=== PATIENT | male | born 1995 | race Caucasian/White ===

== ENCOUNTER 2020-10-01 15:00 | Emergency (ER) | payer BC, SELFPAY ==
[2020-10-01 15:17] VITALS: BP 119/74; PULSE 81; RESP 16; TEMP 37.2; O2SAT 100
[2020-10-01 16:00] VITALS: PULSE 85; RESP 18; O2SAT 99
--- NOTE | 2020-10-01 16:01 | ED.URI ---
HPI - URI/Sore Throat General Chief Complaint: Upper Respiratory Infection Stated Complaint: Headache,Cough,Runny Nose Time Seen by Provider: 10/01/20 15:37 Source: patient and RN notes reviewed Mode of arrival: ambulatory Limitations: no limitations History of Present Illness HPI Narrative: Patient presents today complaining of a 2-day history of headache, sore throat, cough and wheezing with intermittent shortness of breath, rhinorrhea, congestion. Sore throat increases with swallowing and he currently rates it 3/10. Patient has been taking Advil, Zyrtec, and DayQuil without relief. Patient has history of asthma. He has not had an inhaler for about a year. MD elicited complaint: cough, sore throat and nasal congestion Related Data Allergies Allergy/AdvReac Type Severity Reaction Status Date / Time No Known Allergies Allergy Verified 10/01/20 15:27 Review of Systems Review of Systems: Narrative: CONSTITUTIONAL: Denies body aches, fever, chills, or sweats. EYES: Denies visual changes, redness, or discharge. ENT: Denies otalgia.+ Rhinorrhea, congestion, sore throat CARDIOVASCULAR: Denies chest pain, palpitations, or edema. RESPIRATORY: + Cough, wheezing, intermittent shortness of breath GASTROINTESTINAL: Denies abdominal pain, nausea, vomiting, or diarrhea. GENITOURINARY: Denies dysuria or hematuria. SKIN: Denies rash, itching, or wounds. MUSCULOSKELETAL: Denies back pain, joint pain, or myalgia. NEUROLOGIC: Denies numbness, tingling, or weakness.+ Headache PSYCH: Denies depression or anxiety. [facility] Past Medical History Medical History (Updated 10/01/20 @ 16:27 by Mary Bravo, [facility], ) Asthma Seasonal allergies Social History Social History Gender identity (if verbalized by the patient): Male Comments At time of signature, I have reviewed and agree with nursing past medical, surgical, social and family history unless otherwise noted. Please see nursing chart for further information. There is no relevant family history pertinent to the presenting complaint Exam Narrative: Exam Narrative: GENERAL: Well-appearing, well-nourished, and in no acute distress. HEAD: Normocephalic, atraumatic. EYES: EOMI. No redness or drainage. Conjunctivae normal. ENT: Mucous membranes pink and moist. Nares mildly congested. No rhinorrhea. TMs normal bilaterally. Throat normal. Uvula midline. NECK: Normal AROM. Supple. No lymphadenopathy. CHEST: No respiratory distress. Inspiratory and expiratory wheezes throughout. HEART: Regular rate and rhythm. No murmur appreciated. Normal peripheral pulses. EXTREMITIES: Normal range of motion. No edema. SKIN: Warm, dry, no rash. Capillary refill normal. Normal skin turgor. NEURO: No focal deficits. Alert and oriented x3. Gait steady. PSYCH: Normal affect. No signs of depression or anxiety. Course Course Emergency Course: After Duoneb, patient's inspiratory wheezing has resolved. States he feels better. Vital Signs Vital signs: Vital Signs Temperature 99.0 F 10/01/20 15:17 Pulse Rate 81 10/01/20 15:17 Respiratory Rate 16 10/01/20 15:17 Blood Pressure 119/74 10/01/20 15:17 Pulse Oximetry 100 10/01/20 15:17 Temperature 99.0 F 10/01/20 15:17 Pulse Rate 92 10/01/20 16:30 Respiratory Rate 17 10/01/20 16:30 Blood Pressure 119/74 10/01/20 15:17 Pulse Oximetry 99 10/01/20 16:30 Reviewed MDM - URI/Sore Throat Differential Diagnosis Differential diagnosis: Likely upper respiratory infection, sinusitis, viral infection, bronchitis, pharyngitis and other (Strep throat, COVID-19, seasonal allergies, rhinitis) Lab Data Attestation: I reviewed the patient's lab results. Labs: Lab Results 10/01/20 Range/Units 15:30 POC SARS CoV-2 Ag Negative (Negative) Strep Screen Presumptive Negative *(Reference Range: Negative)* Critical Care Time Critical Care Time Critical Car
[2020-10-01] MEDS: IPRATROPIUM BR 0.02% INH SOLN 0.5 MG/2.5 ML VIAL INHALATION (16:06)
[2020-10-01] MEDS: ALBUTEROL SULFATE NEB 2.5 MG/3 ML INH INHALATION (16:08)
[2020-10-01 16:30] VITALS: PULSE 92; RESP 17; O2SAT 99
== END 2020-10-01 16:34 | disposition home or self-care (01) ==
PROVIDERS: Emergency Provider Nurse Practitioner
DX: J30.9 Allergic rhinitis, unspecified (principal); J45.901 Unspecified asthma with (acute) exacerbation; Z20.822 Contact with and (suspected) exposure to COVID-19
CPT/HCPCS: 87081; 87426; 87880; 94640; 99203; C9803; G0463

== ENCOUNTER 2021-07-03 17:44 | Emergency (ER) | payer BC, SELFPAY ==
[2021-07-03 17:54] VITALS: BP 138/87; PULSE 98; RESP 20; TEMP 37.1; O2SAT 99
--- NOTE | 2021-07-03 18:10 | ED.SOB ---
HPI - SOB/Dyspnea General Chief Complaint: Asthma Stated Complaint: wheezing/sob Time Seen by Provider: 07/03/21 18:11 Mode of arrival: ambulatory Limitations: no limitations History of Present Illness HPI Narrative: 25-year-old male presents with concern for wheezing and shortness of breath. He reports history of asthma. He reports he does not have an inhaler. Reports he felt sick on and started wheezing yesterday. Reports nasal congestion, rhinorrhea. Reports trying [id number] inhaler without relief MD elicited complaint: shortness of breath Pertinent past history: asthma Related Data Allergies Allergy/AdvReac Type Severity Reaction Status Date / Time No Known Allergies Allergy Verified 10/01/20 15:27 Review of Systems Review of Systems: CONSTITUTIONAL: Denies malaise, chills, sweats, or fever. EYES: Denies visual changes, redness, or discharge. ENT: Reports rhinorrhea, congestion. Denies sinus pain, otalgia and sore throat. CARDIOVASCULAR: Denies chest pain, palpitations, or edema. RESPIRATORY: Reports cough, wheezing, dyspnea. GASTROINTESTINAL: Denies abdominal pain, nausea, vomiting, diarrhea SKIN: Denies rash or itching. MUSCULOSKELETAL: Denies myalgia. NEUROLOGIC: Denies headache. All systems reviewed & are unremarkable except as noted in HPI and below PMFSH Past Medical History Medical History (Updated 07/03/21 @ 18:47 by Radha Nagy NP) Asthma Seasonal allergies Social History Social History Gender identity (if verbalized by the patient): Male Comments At time of signature, agree with nursing past medical, surgical, social and family history. There is no relevant family history pertinent to the presenting complaint Exam Narrative: GENERAL: Well-appearing, well-nourished, and in no acute distress. HEAD: Normocephalic EYES: PERRLA, conjunctivae clear ENT: Nares clear, turbinates edematous and erythematous, clear discharge. Mucous membranes moist. TM pearly alejo with dull light reflex bilaterally; no tragal tenderness. Oropharynx erythematous without lesions. Tonsils enlarged and without exudate, no drooling, no hoarseness, no trismus, uvula midline. NECK: Supple. No lymphadenopathy CHEST: Inspiratory and expiratory scattered wheeze throughout, breath sounds equal. No rhonchi, rales, or stridor. No respiratory distress, speaks in full sentences. HEART: Regular rate and rhythm. No murmur heard. SKIN: Warm, dry, no rash. NEURO: Alert and oriented x3. PSYCH: Normal mood and affect Course Course Emergency Course: Patient is aware of diagnosis, understands and agrees to treatment plan. Anticipatory guidance given. Patient agrees to follow-up as directed and is aware of reasons to seek care at the emergency department. Portions of this record may have been created with voice recognition software Level of Care: Express Care Visit Reevaluation(s) Reevaluation #1: Patient reports improved symptoms, improved shortness of breath. Aeration good, still some scattered inspiratory and expiratory wheeze. Offered patient second treatment, patient refused second treatment. Date: 07/03/21 Time: 18:56 Vital Signs Vital signs: Vital Signs Temperature 98.8 F 07/03/21 17:54 Pulse Rate 98 07/03/21 17:54 Respiratory Rate 20 07/03/21 17:54 Blood Pressure 138/87 07/03/21 17:54 Pulse Oximetry 99 07/03/21 17:54 Temperature 98.8 F 07/03/21 17:54 Pulse Rate 98 07/03/21 17:54 Respiratory Rate 20 07/03/21 17:54 Blood Pressure 138/87 07/03/21 17:54 Pulse Oximetry 99 07/03/21 17:54 Reviewed. MDM - SOB/Dyspnea MDM Narrative Medical decision making narrative: Differential diagnosis considered: Asthma exacerbation, Mahan virus, strep pharyngitis, allergic rhinitis, upper respiratory tract infection, sinusitis, rhinosinusitis, nasopharyngitis. viral pharyngitis, otitis media, otitis externa, pneumonia, bronchitis, viral cough syndrome, viral syndrome, and influenza. Exa
[2021-07-03 18:29] VITALS: PULSE 91; RESP 22; O2SAT 93
[2021-07-03] MEDS: IPRATROPIUM BR 0.02% INH SOLN 0.5 MG/2.5 ML VIAL INHALATION (18:29)
[2021-07-03] MEDS: ALBUTEROL SULFATE NEB 2.5 MG/3 ML INH INHALATION (18:29)
[2021-07-03 18:50] VITALS: PULSE 102; RESP 22; O2SAT 98
== END 2021-07-03 19:05 | disposition home or self-care (01) ==
PROVIDERS: Emergency Provider Nurse Practitioner
DX: J45.31 Mild persistent asthma with (acute) exacerbation (principal)
CPT/HCPCS: 94640; 99213; G0463

== ENCOUNTER 2021-07-04 12:03 | Emergency (ER) | payer BC, SELFPAY ==
--- NOTE | ~2021-07-04 | XR_ITS ---
EXAMINATION: XR chest 1V portable INDICATION: Shortness of breath TECHNIQUE: Portable AP chest at 1521 hours COMPARISON: None available FINDINGS: The lungs are free of acute opacities. There is no pleural effusion or pneumothorax. The ca rdiomediastinal silhouette is normal. The visualized bones and soft tissues are unremarkable. IMPRESSION: 1. No acute cardiopulmonary abnormality. Reviewed, dictated and finalized at location B.
[2021-07-04 12:31] VITALS: BP 130/86; PULSE 76; RESP 16; TEMP 36.8; O2SAT 98
[2021-07-04 14:47] VITALS: BP 122/88; PULSE 71; RESP 20; O2SAT 95
[2021-07-04] MEDS: predniSONE 20 MG TABLET 60 MG PO (15:10)
[2021-07-04] MEDS: ALBUTEROL SULFATE NEB 2.5 MG/0.5 ML INH 5 MG INHALATION ×2 (15:21→17:03)
[2021-07-04 16:01] LABS: SARS-CoV-2 RNA PCR Negative
--- NOTE | 2021-07-04 16:06 | ED.ASTHMA ---
HPI - Asthma General Chief Complaint: Asthma Stated Complaint: Shortness of Breath Time Seen by Provider: 07/04/21 14:45 Source: patient Mode of arrival: ambulatory Limitations: no limitations History of Present Illness HPI Narrative: 25-year-old male presents today with complaints of shortness of breath and wheezing for the last couple days. Patient states on and Sunday he had a cough, runny nose cough sore throat but denies fevers. States he took 2 home Covid test that were negative. Followed up with the urgent care who gave him a nebulizer treatment and discharged him home with steroids and albuterol. Patient unable to lease picker medications at this time. Patient presents today with increasing shortness of breath. Related Data Allergies Allergy/AdvReac Type Severity Reaction Status Date / Time No Known Allergies Allergy Verified 10/01/20 15:27 Review of Systems Review of Systems: CONSTITUTIONAL: Denies fever, chills, or sweats. EYES: Denies visual changes, redness, or discharge. ENT: Denies rhinorrhea, congestion, sore throat, or otalgia. CARDIOVASCULAR: Denies chest pain, palpitations, or edema. RESPIRATORY: Wheezing and shortness of breath. Denies cough. GASTROINTESTINAL: Denies abdominal pain, nausea, vomiting, or diarrhea. GENITOURINARY: Denies dysuria or hematuria. SKIN: Denies rash or itching. MUSCULOSKELETAL: Denies back pain, joint pain, or myalgia. NEUROLOGIC: Denies headache, numbness, dizziness, or weakness. PSYCHIATRIC: Denies anxiety or depression. [facility] Past Medical History Medical History (Updated 07/04/21 @ 18:58 by Starr Ríos APRN) Asthma Seasonal allergies Social History Social History Gender identity (if verbalized by the patient): Male Exam Narrative: GENERAL: Well-appearing, well-nourished, and in no acute distress. HEAD: Normocephalic, atraumatic. EYES: PERRLA and EOMI. ENT: Nares clear, no rhinorrhea or epistaxis. Mucous membranes moist. Oropharynx without tonsillar hypertrophy exudate or other lesions. Bilateral TMs pearly alejo nonbulging NECK: Supple. No adenopathy or masses. No carotid bruits or JVD CHEST: Expiratory wheezing noted to all jasso. Patient able to speak in full sentences. No distress noted. HEART: Regular rate and rhythm. No murmur heard. Normal peripheral pulses. ABDOMEN: Soft, nontender, nondistended, normal active bowel sounds. EXTREMITIES: Normal range of motion. No edema. SKIN: Warm, dry, no rash. NEURO: No focal deficits. Alert and oriented x3. PSYCH: Normal mood and affect. Course Course Emergency Course: Patient with diffuse wheezing after first nebulizer. During subsequent nebulizer discussed care with respiratory. Patient given 1 hour-long neb. At the end of nebulizer patient states decreased shortness of breath but still with wheezing. Patient able to talk in full sentences. Patient able to ambulate 50 feet without issue. Saturations on room air 97%. Discussed plan of care with patient patient ready to be discharged will continue albuterol inhaler 2 puffs every 4 hours as needed and steroids as previously ordered. Aware to follow-up with primary and to return with any new or worsening symptoms. Girlfriend in the room all in agreement with plan of care. Vital Signs Vital signs: Vital Signs Temperature 36.8 C 07/04/21 12:31 Pulse Rate 76 07/04/21 12:31 Respiratory Rate 16 07/04/21 12:31 Blood Pressure 130/86 07/04/21 12:31 Pulse Oximetry 98 07/04/21 12:31 Temperature 36.8 C 07/04/21 12:31 Pulse Rate 128 H 07/04/21 19:00 Respiratory Rate 20 07/04/21 19:00 Blood Pressure 150/93 H 07/04/21 19:00 Pulse Oximetry 94 07/04/21 19:00 MDM - Asthma Differential Diagnosis Differential diagnosis: Likely Acute exacerbation, Status asthmaticus, Acute asthmatic bronchitis, Pneumonia and other (Covid, flu) Medical Records Attestation: I reviewed the patient's medical records. Lab Data Attestation: I revie
[2021-07-04] MEDS: ALBUTEROL SULFATE NEB 2.5 MG/0.5 ML INH 10 MG INHALATION (17:32)
[2021-07-04 18:37] VITALS: O2SAT 97
[2021-07-04 19:00] VITALS: BP 150/93; PULSE 128; RESP 20; O2SAT 94
== END 2021-07-04 19:05 | disposition home or self-care (01) ==
PROVIDERS: Emergency Provider Nurse Practitioner Family
DX: J45.901 Unspecified asthma with (acute) exacerbation (principal); Z20.822 Contact with and (suspected) exposure to COVID-19
CPT/HCPCS: 71045; 87804; 94640; 99284; C9803; J7512; U0003; U0005

== ENCOUNTER 2023-08-24 13:04 | Emergency (ER) | payer OTHER, SELFPAY ==
--- NOTE | ~2023-08-24 | XR_ITS ---
EXAMINATION: XR foot LT min 3V DATE: 08/24/2023 14:26 INDICATION: Left fifth metatarsal fracture. TECHNIQUE: 4 views of left foot were obtained. COMPARISON: None. FINDINGS: There is a nondisplaced transverse fracture of base of fifth metatarsal. Joint spaces are n ormal. IMPRESSION: 1. Nondisplaced transverse fracture of base of fifth metatarsal. Reviewed, dictated and finalized at location A.
--- NOTE | ~2023-08-24 | XR_ITS ---
EXAMINATION: XR ankle LT min 3V DATE: 08/24/2023 13:25 INDICATION: Left ankle injury and pain. TECHNIQUE: 4 views of left ankle were obtained. COMPARISON: None. FINDINGS: Bone alignment is normal. There is a nondisplaced transverse fracture of base of fifth meta tarsal. Joint spaces are normal. IMPRESSION: 1. Nondisplaced transverse fracture of base of fifth metatarsal. Reviewed, dictated and finalized at location A.
[2023-08-24 13:13] VITALS: BP 134/81; PULSE 88; RESP 16; TEMP 36.9; O2SAT 99
[2023-08-24] MEDS: ACETAMINOPHEN 500 MG TABLET 1000 MG PO (14:15)
[2023-08-24] MEDS: KETOROLAC (*BKC) 60 MG/2 ML VIAL IM (14:16)
--- NOTE | 2023-08-24 14:17 | ED.LOWEXIN ---
HPI - Extremity Injury (Lower) General Chief Complaint: Extremity Injury, Lower Stated Complaint: left ankle injury Time Seen by Provider: 08/24/23 13:21 Source: patient Mode of arrival: ambulatory Limitations: no limitations History of Present Illness HPI Narrative: Patient is a 27-year-old male who presents to the ED with report of left foot/ankle pain. Patient reports he tripped on an acorn and rolled/inverted his left ankle. States he felt and heard a pop in his lateral foot. Complains of pain to his mid lateral foot. Swelling noted. Denies numbness. Unable to ambulate due to pain. Related Data Allergies Allergy/AdvReac Type Severity Reaction Status Date / Time No Known Allergies Allergy Verified 09/21/22 08:40 Review of Systems Review of Systems: CONSTITUTIONAL: Denies fever, chills, or sweats. MUSCULOSKELETAL: See HPI NEUROLOGIC: Denies headache, dizziness, numbness, or weakness. All systems reviewed & are unremarkable except as noted in HPI and below PMFSH Past Medical History Medical History Asthma Seasonal allergies Social History Social History Gender identity (if verbalized by the patient): Male Exam Narrative: GENERAL: Well appearing, well-nourished, non-toxic, in no acute distress. HEAD: Normocephalic, atraumatic. RESPIRATORY: Airway patent, respirations nonlabored. CARDIOVASCULAR: Regular rate and rhythm without murmurs, rubs, or gallops. Pedal pulses strong and easily palpable. MUSCULOSKELETAL: Moves all extremities. Moderate tenderness to mid lateral foot along area of proximal 5th MT, with swelling and bruising noted. Sensation intact. Capillary refill intact. SKIN: Warm, dry, normal color. NEURO: A&O X3. Speech clear. PSYCHIATRIC: Appropriate mood and affect. Normal interaction. Course Vital Signs Vital signs: Vital Signs Temperature 98.5 F 08/24/23 13:13 Pulse Rate 88 08/24/23 13:13 Respiratory Rate 16 08/24/23 13:13 Blood Pressure 134/81 08/24/23 13:13 Pulse Oximetry 99 08/24/23 13:13 Oxygen Delivery Room Air 08/24/23 13:13 Temperature 98.5 F 08/24/23 13:13 Pulse Rate 88 08/24/23 13:13 Respiratory Rate 16 08/24/23 13:13 Blood Pressure 134/81 08/24/23 13:13 Pulse Oximetry 99 08/24/23 13:13 Oxygen Delivery Room Air 08/24/23 13:13 MDM - Extremity Injury (Lower) MDM Narrative Medical decision making narrative: Patient?s injury is consistent with musculoskeletal etiology. No signs of neurologic or vascular compromise on physical examination. Compartments are soft without signs of compartment syndrome. XRs showing proximal 5th metatarsal fracture, nondisplaced. Pain is consistent with exam and injury. Patient is felt to be stable for discharge home and further outpatient management and treatment. Placed in posterior short-leg splint, given crutches. Advised to be strictly nonweightbearing. Follow-up with orthopedics or podiatry. Given strict return precautions. Pain medications sent to pharmacy. Patient in agreement plan. Discharged in stable condition. Medical Records Attestation: I reviewed the patient's medical records. Imaging Data Attestation: I personally reviewed and interpreted this imaging study as follows: Radiologist's impression: ITS Impressions Ankle X-Ray 08/24/23 13:31 IMPRESSION: 1. Nondisplaced transverse fracture of base of fifth metatarsal. Foot X-Ray 08/24/23 14:26 IMPRESSION: 1. Nondisplaced transverse fracture of base of fifth metatarsal. Discharge Plan Discharge Clinical Impression: Fracture of fifth metatarsal bone of left foot Qualifiers: Encounter type: initial encounter Fracture type: closed Fracture alignment: nondisplaced Qualified Code(s): S92.355A - Nondisplaced fracture of fifth metatarsal bone, left foot, initial encounter for closed fr
== END 2023-08-24 14:53 | disposition home or self-care (01) ==
PROVIDERS: Emergency Provider Physician Assistant; Referring Provider Emergency Medicine
DX: S92.352A Displaced fracture of fifth metatarsal bone, left foot, initial encounter for closed fracture (principal); J45.909 Unspecified asthma, uncomplicated; X50.9XXA Other and unspecified overexertion or strenuous movements or postures, initial encounter
CPT/HCPCS: 29515; 73610; 73630; 96372; 99284; A9270; J1885

== ENCOUNTER 2023-09-13 09:22 | Outpatient (CLI) | payer OTHER, SELFPAY ==
--- NOTE | ~2023-09-13 | XR_ITS ---
Left foot Technique: AP, oblique, and lateral views were obtained. Clinical History: Fifth metatarsal fracture COMPARISON: 08/24/2023 Findings: Transverse, nearly nondisplaced fracture of the base of the fifth metatarsal is essentially unchanged from prior exam.. Joint spaces are preserved without erosive or degenerative change. Soft tissues are unremarkable. Impression: Transverse fracture the base of fifth metatarsal is essentially unchanged, nearly nondisplaced. Reviewed, dictated and finalized at location M. Impression: Transverse fracture the base of fifth metatarsal is essentially unchanged, near ly nondisplaced.
== END 2023-09-13 09:23 | disposition home or self-care (01) ==
PROVIDERS: Visit Provider Orthopaedic Surgery
DX: S92.352A Displaced fracture of fifth metatarsal bone, left foot, initial encounter for closed fracture (principal); X58.XXXA Exposure to other specified factors, initial encounter
CPT/HCPCS: 73630